=== PATIENT | female | born 1995 | race Caucasian/White ===

== ENCOUNTER 2022-11-28 17:37 | Emergency (ER) | payer BC ==
[~2022-11-28] VITALS: Ht 147.3 cm; Wt 63.5 kg
[~2022-11-28 17:37] MED LIST: AMOXICILLIN500 MG PO; DIFLUCAN150 MG PO; DONNATAL1 TAB PO; MOTRIN600 MG PO; PHENERGAN25 M1 PO; SEASONIQUE1 TA1 PO
[2022-11-28 20:24] LABS: BUN 8 mg/dl (9-23); CHLORIDE 102 mmol/L (98-107); POTASSIUM 3.2 mmol/L (3.4-5.1)
[2022-11-28] MEDS ORDERED: KEFLEX 500 MG E2 CAP PO (21:29)
[2022-11-28 21:43] LABS: BILIRUBIN 3+ (Negative); BLOOD Negative (Negative); CLARITY Cloudy (Clear); COLOR Dark Yellow (Yellow); GLUCOSE Negative (Negative); KETONE 4+ (Negative); LEUKO ESTERASE 1+ (Negative); NITRITE Positive (Negative); SPECIFIC GRAVITY >= 1.030 (1.001-1.030)
[2022-11-28 21:52] LABS: BACTERIA 1+; COARSE GRANULAR CAST 0-2; MUCOUS 2+
[2022-11-28 22:27] LABS: HEMATOCRIT 35.2 % (37.0-47.0); MEAN CELL VOLUME 85.2 fl (81.0-99.0); MEAN CORPUSCULAR HGB 29.5 pg (27.0-31.0); MEAN CORPUSCULAR HGB CONC 34.7 g/dl (33.0-37.0); MEAN PLATELET VOLUME 9.8 fl (9.6-12.3); PLATELET COUNT AUTOMATED 100 10*3/uL (130-400); RED BLOOD COUNT 4.13 10*6/uL (4.10-5.10); WHITE BLOOD COUNT 2.9 10*3/uL (4.8-10.8)
[2022-11-28 22:30] LABS: MANUAL DIFF REFLEX YES
[2022-11-28 22:47] LABS: ALKALINE PHOSPHATASE 156 U/L (46-116); BUN 8 mg/dl (9-23); CHLORIDE 104 mmol/L (98-107); POTASSIUM 3.3 mmol/L (3.4-5.1); SGPT/ALT 348 U/L (10-49); TOTAL PROTEIN 6.3 gm/dL (6.0-8.0)
[2022-11-28 23:34] LABS: ATYPICAL LYMPHS 39 % (0-0); PLATELET SUFFICIENCY LOW (NORMAL); TOTAL CELLS COUNTED 100 #CELLS
[2022-11-29] MEDS ORDERED: OMNICEF300 MG PO (03:46)
[2022-11-30] MEDS ORDERED: FLUOXETINE HYDR20 M1 PO (21:07)
== END 2022-11-29 03:30 | disposition home or self-care (01) ==
LOC: ED 17:37
PROVIDERS: Emergency Medicine; Student in an Organized Health Care Education/Training Program
DX: B27.90 Infectious mononucleosis, unspecified without complication (principal); E87.6 Hypokalemia; R74.01 Elevation of levels of liver transaminase levels; R73.9 Hyperglycemia, unspecified; N39.0 Urinary tract infection, site not specified; Z88.8 Allergy status to other drugs, medicaments and biological substances; Z98.890 Other specified postprocedural states; F10.90 Alcohol use, unspecified, uncomplicated; R16.1 Splenomegaly, not elsewhere classified